=== PATIENT | male | born 1970 | race Caucasian/White ===

== ENCOUNTER 2024-08-12 18:30 | Emergency (ER) | payer OTHER, SELFPAY ==
[2024-08-12 18:52] LABS: Glucose - Point of Care 145 mg/dl (70-99)
[2024-08-12 19:07] LABS: % Basophils 0.4 % (0-2); % Eosinophils 0.3 % (0-6); % Immature Granulocytes 0.9 % (0-0.5); % Lymphocytes 10.2 % (20.5-51.1); % Monocytes 6.4 % (1.7-9.3); % Neutrophils 81.8 % (42.2-75.2); Absolute Basophils 0.1 10^3/uL (0-0.2); Absolute Immature Granulocytes 0.1 10^3/uL (0-0.05); Absolute Lymphocytes 1.4 10^3/uL (1.2-3.4); Absolute Monocytes 0.9 10^3/uL (0.1-0.6); Absolute Neutrophils 11.1 10^3/uL (1.4-6.5); Hematocrit 41.9 % (39.0-52.0); Hemoglobin 14.5 g/dL (13.0-18.0); Mean Corp Hgb Conc. 34.6 g/dL (33.0-37.0); Mean Corpuscular Hgb 31.5 pg (27.0-31.0); Mean Corpuscular Volume 91.1 fL (80.0-94.0); Nucleated Red Blood Cells % 0 % (-); Platelet Count 177 10^3/uL (130-400); Red Cell Dist. Width 12.7 % (11.5-14.5); White Blood Cell Count 13.5 10^3/uL (4.8-10.8)
[2024-08-12 19:24] LABS: ALT (SGPT) 21 U/L (0-50); AST (SGOT) 25 U/L (17-59); Albumin 4.9 g/dl (3.5-5.0); Alkaline Phosphatase 58 U/L (38-126); Blood Urea Nitrogen 16 mg/dl (9-20); Calcium 9.4 mg/dl (8.4-10.2); Carbon Dioxide 27 mmol/L (22-30); Chloride 101 mmol/L (98-107); Glucose 135 mg/dl (70-99); Potassium 3.7 mmol/L (3.5-5.1); Sodium 137 mmol/L (135-145); Total Bilirubin 0.5 mg/dl (0.2-1.3); eGFR > 60.00
[2024-08-12 20:24] LABS: Free T4 0.93 ng/dl (0.78-2.19)
[2024-08-12 20:50] VITALS: BMI 34.0
[2024-08-12 20:51] VITALS: BP 125/79
--- NOTE | 2024-08-12 21:45 | ED.GENMED ---
History of Present Illness
General
Chief Complaint: Fatigue
Source: patient
Exam Limitations: none
Time Seen by Provider: 08/12/24 20:58
History of Present Illness
History of Present Illness:
This is a 53 year old male that comes in with c/o jus not feeling right. 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 States that he stopped about 2:30-30pm. States that he really had not eaten. States that he thought
possible his blood sugar was off so he eat a cookie. States that he felt like he was in a room and he could hear people talking that were far off. States that they were muted. States that he did have diarrhea today. Denies any fever, chills, chest
pain, SOB, abd pain, nausea, vomiting, headache, dizziness, urinary burning.
Past History
Past History
ED Past Medical History: Other (Testicular torsion, ); Negative Asthma, HTN, Hypercholesterolemia or NIDDM
ED Past Surgical History: None
Social History
Tobacco: Smoker
Alcohol: None
Personal:
Living: with family
Employment: Employed
Review of Systems
Review of Systems
All Other Systems: ROS reviewed and negative except as documented in HPI and ROS
Constitutional: Reports no symptoms; Denies fever or chills
EENT: Reports no symptoms
Respiratory: Reports no symptoms; Denies cough or trouble breathing
Cardiac: Reports no symptoms; Denies chest pain
ABD/GI: Reports diarrhea; Denies abdominal pain, nausea or vomiting
: Reports frequency; Denies dysuria or urgency
Musculoskeletal: Reports no symptoms
Skin: Reports no symptoms
Neurological: Reports no symptoms; Denies dizzy or headache
Psychiatric: Reports no symptoms
Phy Exam
General Physical Exam
General Presentation: well appearing and no apparent distress
General age: appears stated age
General Skin: warm and dry
General Habitus: normal
General Hydration: dry mucous membranes
ENT Exam
ENT Exam: TM's normal, pharynx normal and neck supple
Eye Exam
Eye Exam: EOMI
Cardiovascular Exam
Cardiovascular Exam: regular rate/rhythm, no edema, no murmur and normal peripheral pulses
Pulmonary Exam
Pulmonary Exam: lungs clear, no respiratory distress, no rales, chest non tender, no crackles, no rhonchi, no wheezing and no cough
Gastrointestinal Exam
Gastrointestinal Exam: normal bowel sounds, non tender, soft, no organomegaly, no pulsatile mass and non distended
Musculoskeletal Exam
Musculoskeletal Exam: full ROM and no edema
Skin Exam
Skin Exam: normal color, warm/dry, no rash and no petechia
Psychiatric Exam
Psychiatric Exam: normal mood/affect
Course
Orders/Labs/Results
Orders:
Orders
08/12/24 18:49
Electrocardiogram (*1) Urgent
Reason for Study: Palpitations
08/12/24 18:50
EKG- Treatment ONCE
08/12/24 19:01
Complete Blood Count/With Diff Urgent
Comprehensive Metabolic Panel Urgent
Free T4 Urgent
TSH Reflex To Free T4 Urgent
08/12/24 21:32
CT Head W/o Iv Contrast Urgent
Comment:
Reason For Exam: Just not feeling right,
0.9% Sodium Chloride 1000 ml [Nss] 1,000 ml IV BOLUS
08/12/24 21:43
Urinalysis Reflex To Culture Urgent
Date Specimen was Collected: 08/12/24
Time Specimen was Collected: 21:42
Abnormal Lab Results
08/12/24 08/12/24
18:40 19:01
WBC 13.5 H 10^3/uL
(4.8-10.8)
RBC 4.60 L 10^6/uL
(4.70-6.10)
MCH 31.5 H pg
(27.0-31.0)
Abs Immat Gran (auto) 0.1 H 10^3/uL
(0-0.05)
Absolute Neuts (auto) 11.1 H 10^3/uL
(1.4-6.5)
Absolute Monos (auto) 0.9 H 10^3/uL
(0.1-0.6)
Immature Gran % 0.9 H %
(0-0.5)
Neutrophils % 81.8 H %
(42.2-75.2)
Lymphocytes % 10.2 L %
(20.5-51.1)
Glucose 135 H mg/dl
(70-99)
TSH (Reflex) 0.30 L uIU/ml
(0.47-4.68)
POC Glucose 145 H mg/dl
(70-99)
08/12/24 19:01
08/12/24 19:01
Leukocytosis, Hyperglycemia. TSH low Free T4 normal at 0.93 Urine negative for infection.
Vital Signs
Initial and Last Documented VS:
Initial Vital Signs
Temp Pulse Resp Pulse Ox
98.2 F 99 20 99
08/12/24 18:36 08/12/24 18:36 08/12/24 18:36 08/12/24 18:36
Last Documented Vital Signs
Temp Pulse Resp BP Pulse Ox
98.2 F 72 18 125/79 96
08/12/24 18:36 08/12/24 20:51 08/12/24 20:51 08/12/24 20:51 08/12/24 20:51
MDM/Problems Addressed
Differential Diagnosis Includes:
Hyperglycemia, UTI
MDM/Problems Addressed:
This is a 53 year old male that comes in with c/o just not feeling right. States that he worked on his truck all day and the he felt like he was in a room and people were far off talking. States that he thought that his Blood sugar was off so he eat
a cookie.
Will check labs. CT head and given IF Fluids and get urine.
Back into see patient. State that he is feeling better. Explained that his WBC were slightly elevated and his TSH is low but free T4 is normal. Patient is to follow up with the family doctor for further evaluation. Patient to increase his water
intake to 8-8oz glasses daily and eat either 3 meals daily or 6 small meals to give the body something to work with. Patient to return with any concerns.
Chronic conditions affecting care:
NA
Acute Exacerbation and/or Progression of Chronic Illness:
NA
*Radiology
Radiology exam reviewed: radiology read reviewed (Ct head-NO acute intracranial abnormality noted. )
*Pulse Oximetry
Patient hypoxic: no
*EKG
Interpreted by ED Provider?: Yes
Heart Rate: 9
Rate: normal
Rhythm: sinus
[place]: left axis deviation
Interval: normal interval
QRS Pattern: normal QRS
Ischemia: no ischemia
*Mushroom Spawn Maker Interpretation
Rate: Mushroom Spawn Maker- N/A
*Critical Care Note
Total Time (30-74mins, 75-104mins- exclusive of procedures): Not Applicable
ED Attending Note
-
Portions of this chart may have been created with voice recognition software.� Occasional wrong word or��sound alike� substitutions may have occurred due to the inherent limitations of voice recognition software.
Discharge Plan
Departure
Patient Disposition: Home (Routine Discharge)
Date of Disposition: 08/12/24
Time of Disposition: 22:38
Patient with high blood pressure during this ER visit?: No
Condition: Good
Covid-19: Not Applicable
Discharge Problem:
Encounter for medical assessment
Activity Restrictions/Additional Instructions:
As discussed, your blood work shows that your White blood cell count is slightly elevated. This can go up with stress. Your CT of the head is normal and your urine is negative for infection. Your TSH which is part of your Thyroid function is low.
Please call your family doctor and set up an appointment for further evaluation. Please increase your water intake to 8-8oz glasses daily. Eat a well balance diet 3 times daily or 6 small meals. IF YOU HAVE ANY OTHER CONCERNS PLEASE RETURN TO THE
EMERGENCY ROOM .
Interventions
Interventions:
*Risk Screen - Suicide Last Done: 08/12/24 18:36
*General Assessment Last Done: 08/12/24 20:51
*Neglect/Abuse Screening Last Done: 08/12/24 18:36
ED- Fall Risk Assessment Last Done: 08/12/24 20:56
*ED COVID-19 Vaccine History Last Done: 08/12/24 20:51
Discharge Date and Time
Print Language: CHILEAN
[2024-08-12] MEDS: NSS 1000 IV (21:50)
[2024-08-12 21:52] LABS: Urine Albumin Negative (Neg - Trace); Urine Bilirubin Negative (Negative); Urine Character Clear (Clear); Urine Color Straw; Urine Glucose Negative (Negative); Urine Ketone Negative (Negative); Urine Leukocyte Negative (Negative); Urine Nitrite Negative (Negative); Urine Occult Blood Negative (Negative); Urine Specific Gravity 1.015 (<1.030); Urine Urobilinogen Negative (Neg - 1+)
[2024-08-12 22:37] LABS: Glucose - Point of Care 89 mg/dl (70-99)
== END 2024-08-12 23:07 | disposition home or self-care (01) ==
LOC: EMR 18:30
PROVIDERS: Clinical Nurse Specialist Family Health; Emergency Medicine; EMERGENCY PHYSICIAN Emergency Medicine; FAMILY PHYSICIAN Family Medicine
DX: R19.7 Diarrhea, unspecified (principal); R53.83 Other fatigue; R00.2 Palpitations; Z02.79 Encounter for issue of other medical certificate; F17.200 Nicotine dependence, unspecified, uncomplicated
CPT/HCPCS: 99284; 96360; 70450; 80053; 81003; 82962; 84439; 84443; 85025; 93005

== ENCOUNTER 2025-04-17 19:16 | Emergency (ER) | payer BC, SELFPAY ==
[2025-04-17 19:18] VITALS: BP 167/99
[2025-04-17 19:25] VITALS: BMI 33.1
--- NOTE | 2025-04-17 19:26 | PTCARENOTE ---
Dr. Mullen notified of pts symptoms on arrival. CT head placed by Dr. Mullen. Stroke alert not called.
[2025-04-17 19:44] LABS: Hematocrit 36.8 % (39.0-52.0); Hemoglobin 12.6 g/dL (13.0-18.0); Mean Corp Hgb Conc. 34.2 g/dL (33.0-37.0); Mean Corpuscular Volume 89.1 fL (80.0-94.0); Nucleated Red Blood Cells % 0 % (-); Platelet Count 244 10^3/uL (130-400); Red Cell Dist. Width 13.3 % (11.5-14.5)
[2025-04-17 20:05] LABS: ALT (SGPT) 34 U/L (0-50); AST (SGOT) 31 U/L (17-59); Albumin 4.0 g/dl (3.5-5.0); Alkaline Phosphatase 65 U/L (38-126); Blood Urea Nitrogen 10 mg/dl (9-20); Calcium 9.6 mg/dl (8.4-10.2); Carbon Dioxide 26 mmol/L (22-30); Chloride 106 mmol/L (98-107); Estimated Creatinine Clearance > 125 ml/min; Glucose 106 mg/dl (70-99); Potassium 4.4 mmol/L (3.5-5.1); Sodium 139 mmol/L (135-145); Total Protein 6.6 g/dl (6.3-8.2); eGFR > 60.00
--- NOTE | 2025-04-17 20:48 | ED.CVA ---
Addendum entered and electronically signed by Jonny Bennett PA-C 04/20/25 10:11:
Lyme test presumptively positive. Spoke with patient regarding this result. Advised to continue the doxycycline.
Original Note:
History of Present Illness
General
Chief Complaint: CVA/TIA Symptoms
Source: patient
Exam Limitations: none
Time Seen by Provider: 04/17/25 20:20
Onset of Stroke Symptoms
Onset of symptoms known: No
Time pt last seen normal is known: No
History of Present Illness
History of Present Illness:
54-year-old male complains of left-sided facial weakness and tearing issues to his left eye. Started earlier today. Over the last week or so he has had myalgias bilateral shoulder pains aches night sweats. He denies focal weakness numbness
tingling speech issues gait issues etc. [place].
Past History
Past History
ED Past Medical History: Other (Testicular torsion, ); Negative Asthma, HTN, Hypercholesterolemia or NIDDM
ED Past Surgical History: Urological and Other ([place] teeth)
Social History
Tobacco: Smoker
Alcohol: None
Personal:
Living: with family
Employment: Employed
Review of Systems
Review of Systems
All Other Systems: Not applicable
Constitutional: Denies fever or chills
Phy Exam
Physical Exam
Physical Exam:
GENERAL: Alert and oriented in no apparent distress.
EYE: Orbits normal.
NECK: Supple. No carotid bruit
CARDIAC: Regular rate and rhythm without any obvious murmurs.
LUNGS: Mild expiratory wheezing. No respiratory distress. This apparently is normal for the patient
ABDOMEN: Soft, without focal tenderness or distention
NEUROLOGICAL: Alert and oriented , extraocular muscles intact. Pupils equal reactive to light. Mild left facial droop and loss of left nasolabial fold. Decreased creases to the left forehead and weakness of the left forehead. Weakness to the
left eyelid. Some tearing.
SKIN: Warm and dry, no rash or lesion, no discoloration, skin intact.
MUSCULOSKELETAL: No edema,no deformity.Good color
PSYCH: Normal and appropriate interaction.
Course
Orders/Labs/Results
Orders:
Orders
04/17/25 19:30
Complete Blood Count/With Diff Urgent
Comprehensive Metabolic Panel Urgent
04/17/25 19:31
Lyme Progressive Urgent
Abnormal Lab Results
04/17/25
19:30
WBC 12.7 H 10^3/uL
(4.8-10.8)
RBC 4.13 L 10^6/uL
(4.70-6.10)
Hgb 12.6 L g/dL
(13.0-18.0)
Hct 36.8 L %
(39.0-52.0)
Abs Immat Gran (auto) 0.2 H 10^3/uL
(0-0.05)
Absolute Neuts (auto) 9.9 H 10^3/uL
(1.4-6.5)
Absolute Monos (auto) 0.7 H 10^3/uL
(0.1-0.6)
Immature Gran % 1.6 H %
(0-0.5)
Neutrophils % 78.0 H %
(42.2-75.2)
Lymphocytes % 13.7 L %
(20.5-51.1)
Glucose 106 H mg/dl
(70-99)
04/17/25 19:30
04/17/25 19:30
Vital Signs
Initial and Last Documented VS:
Initial Vital Signs
Temp Pulse Resp BP Pulse Ox
99.4 F 99 20 167/99 98
04/17/25 19:18 04/17/25 19:18 04/17/25 19:18 04/17/25 19:18 04/17/25 19:18
Last Documented Vital Signs
Temp Pulse Resp BP Pulse Ox
99.4 F 99 20 167/99 98
04/17/25 19:18 04/17/25 19:18 04/17/25 19:18 04/17/25 19:18 04/17/25 20:51
MDM/Problems Addressed
Differential Diagnosis Includes:
Patient clinically has a 7th cranial nerve palsy. He describes recent symptoms of myalgias shoulder pains night sweats that could be consistent with Lyme disease. He did notice a small rash behind his knee but he does not have this now. He has no
other neurologic symptoms. I am suspicious enough of Lyme as a etiology for his 7th cranial nerve palsy that I will cover him with doxycycline prednisone and follow-up. I do not feel radiologic testing is warranted at this time.
*Pulse Oximetry
SaO2: 98
Oxygen Mode of Delivery: Room air
Patient hypoxic: no
*Critical Care Note
Total Time (30-74mins, 75-104mins- exclusive of procedures): Not Applicable
ED Attending Note
-
Portions of this chart may have been created with voice recognition software.� Occasional wrong word or��sound alike� substitutions may have occurred due to the inherent limitations of voice recognition software.
Discharge Plan
Departure
Patient Disposition: Home (Routine Discharge)
Date of Disposition: 04/17/25
Time of Disposition: 20:53
Patient with high blood pressure during this ER visit?: Yes
Discharge Problem:
Left 7th cranial nerve palsy, Suspect Lyme disease
Instructions: Hung's Palsy (DC), BLOOD PRESSURE
Prescriptions:
New
doxycycline hyclate 100 mg capsule
100 mg PO BID 21 Days Qty: 42 0RF
prednisone 50 mg tablet
50 mg PO DAILY Qty: 6 0RF
Activity Restrictions/Additional Instructions:
If the Lyme titer is negative in 3 to 4 days you could stop the doxycycline
Look online and do some rehabilitation for the 7th cranial nerve palsy
Follow-up closely with your primary physician
As I discussed, return immediately with any other unusual neurologic symptoms
Interventions
Interventions:
*Risk Screen - Suicide Last Done: 04/17/25 19:18
*General Assessment Last Done: 04/17/25 19:18
*Neglect/Abuse Screening Last Done: 04/17/25 19:18
*ED COVID-19 Vaccine History Last Done: 04/17/25 19:18
Discharge Date and Time
Print Language: SLOVENIAN
[2025-04-17] MEDS: DELTASONE 50 MG PO (21:00)
[2025-04-17] MEDS: VIBRAMYCIN 100 MG PO (21:00)
[2025-04-17 21:10] VITALS: BP 155/68
[2025-04-18 14:16] LABS: Lyme Antibody Screen, EIA Presump. Positive (Negative)
== END 2025-04-17 21:11 | disposition home or self-care (01) ==
LOC: EMR 19:16
PROVIDERS: Emergency Medicine; EMERGENCY PHYSICIAN Emergency Medicine; FAMILY PHYSICIAN Family Medicine
DX: G51.0 Bell's palsy (principal); I10 Essential (primary) hypertension; F17.200 Nicotine dependence, unspecified, uncomplicated
CPT/HCPCS: 99283; 80053; 85025; 86617; 86618